=== PATIENT | female | born 1970 | race Two or more races ===

== ENCOUNTER 2018-01-20 14:02 | Emergency (ER) | payer OTHER ==
[~2018-01-20] VITALS: Ht 162.6 cm; Wt 63.5 kg
--- NOTE | 2018-01-20 15:35 | NUR ---
PT WAS EVALUATED BY DR ESPAÑA. PT WAS D/C TO HOME. D/C INSTRUCTIONS GIVEN TO THE PT.
[2018-01-20 15:36] VITALS: BP 129/75
== END 2018-01-20 15:44 | disposition home or self-care (01) ==
LOC: ER 14:03
DX: K64.4 Residual hemorrhoidal skin tags (principal); Z91.018 Allergy to other foods
CPT/HCPCS: 99282; A4663